=== PATIENT | female | born 1940 | race Caucasian/White ===

== ENCOUNTER 2018-05-29 08:02 | Emergency (ER) | payer OTHER ==
--- NOTE | 2018-05-29 08:07 | EDPHY ---
HPI/HX/ROS/PE/MDM Narrative: CHIEF COMPLAINT: Fall HISTORY OF PRESENT ILLNESS: This patient is a 78-year-old female with history of dementia arriving via EMS following an unwitnessed fall this morning. She lives at [facility], and staff presume the fall was from standing. It was reported immediately by another resident, and staff deny any known loss of consciousness. She sustained a laceration or puncture wound to her occiput during her fall, bleeding was controlled prior to EMS arrival. She was acting appropriately per staff. EMS crews attempted to place a cervical collar due to unknown mechanism, but the patient did not tolerate this. Vitals were stable in transport, BGL 103. The patient states she does not know what happened this morning, but endorses knowledge of striking her head. She denies chest pain or abdominal pain. She is not anticoagulated per her medication list. HPI primarily obtained via EMS report. Patient is a poor historian due to history of dementia. REVIEW OF SYSTEMS: Unable to obtain due to patient's underlying dementia. PAST MEDICAL HISTORY: Dementia. Hypertension. SOCIAL HISTORY: Lives at [facility]. Patient is a full code. Retired. . VITAL SIGNS: Reviewed by me GENERAL: Pleasant, confused, elderly female. Obvious trauma to back of head. Scared and confused. Follows some simple instructions. HEENT: No facial trauma. Wound to occiput covered by hair matted with blood. Eyes: No icterus, no injection. PERRL. Mouth: moist mucous membranes. No erythema or lesions. Neck: supple with no adenopathy, nontender. LUNGS: Clear to auscultation bilaterally, no wheezes, rhonchi or rales. No chest trauma noted. CARDIAC: Regular rate and rhythm, no rubs, murmurs or gallops. ABDOMEN: Soft, nontender, nondistended, bowel sounds normal. BACK: Atraumatic. No CVA tenderness. EXTREMITIES: No trauma. No edema. Range of motion is normal throughout. NEURO: Alert, grossly nonfocal. Patient is unable to cooperate with a full neurologic exam but is responding appropriately to stimuli, is consolable, and is moving all extremities. SKIN: Warm and dry, no rash. PSYCHIATRIC: Normal mentation, no agitation. Portions of this note were transcribed by a biomedical engineering professor. I personally performed a history, physical exam, medical decision making, and confirmed accuracy of information the transcribed note. ED Course: 78-year-old female with a history of significant dementia/Alzheimer's presents after a presumed fall from standing height. She was found by the staff with a laceration to the back of her head. Received report from EMS at bedside on arrival. Evaluation emergency department will include EKG, head CT, basic metabolic laboratory evaluation. Plan to administer 0.5mg PO Ativan. Of note, paperwork from the long term does not indicate the patient's core status. 12-LEAD EKG: Please see the full report in [facility]. My interpretation: Sinus rhythm, rate 74. Multiple PVCs. Patient's laceration on the left occipital parietal area was anesthetized with 0.5% bupivacaine with epinephrine. Notified by nursing staff that the patient is a full code. 09:03 Attemped to obtain head CT after sedation with oral ativan. Patient became quite agitated and was unable to tolerate CT. Remainder of patients labs does not indicate other etiology for her fall. Suspect mechanical. Reassessed. Patient's wound has been cleaned: 2cm laceration to the occiput down to galea. Plan for laceration repair. 09:20 Procedure: Laceration repair. The linear 2cm laceration on the occiput was anesthetized using bupivacaine and epinephrine. The wound was cleaned with standard ED protocol, draped and explored to its base with a gloved finger. The wound was repaired in single layer technique with vito. The wound repair was simple. The procedure was performed by myself, Dr. Kunz. Second attempt to obtain head CT post sedation with zyprexa. 11:[address] Roche, radiologist. CT is nondiagnostic due to motion. Patient again sedated with Ativan. 12:[address] Roche, radiologist. CT shows left-sided subgaleal hematoma , no acute intracranial processes. Plan to discharge home in good condition with prescription for Keflex for infection prevention. She will return in 10 days for staple removal. Return precautions and infection precautions discussed. MDM: Differential diagnosis of fall in the elderly was considered including but not limited to intracranial injury, long bone and pelvic bone fracture, spinal injury, intrathoracic injury, extremity injury, intra-abdominal injury, lacerations, abrasions, and contusions. - Data Points Imaging Results: Addendum IMPRESSION: Left high convexity subgaleal hematoma. No acute intracranial process. Age-appropriate generalized cerebral volume loss with sequelae of chronic microvascular ischemic disease. Findings and recommendations discussed with Ale Kunz MD at 1202 hour, 05/29/2018. Addendum Dictated By: Neymar Roche MD *This report was compiled using a voice recognition dictation system and may contain typographical errors* 1157 T:PSCRIBE 05/29/18 1157 Electronically Signed by:Neymar Roche MD 05/29/18 1208 CC: Ale Kunz MD; PCP Not In, Dictionary Addendum ADDENDUM: Repeat images are of diagnostic quality. No acute large vessel ischemic infarct, hemorrhage, or extra-axial fluid collection is appreciated. Lateral ventricles and cortical sulci are prominent, compatible with age-appropriate generalized cerebral volume loss. Hypodensity within the periventricular and subcortical white matter is consistent with changes of chronic microvascular ischemic disease. There is no midline shift and the basal cisterns are not effaced. A subgaleal hematoma overlying the left parietal bone noted. There is no displaced skull fracture. Paranasal sinuses and mastoid air cells are clear. Head WO IV Contrast History: fall hx of severe dementia. Comparison: None available. Technique: Dose reduction techniques were utilized. Findings: Severely limited study due to motion. No large intraparenchymal hemorrhage is seen. Evaluation for subarachnoid is limited. Evaluation for ischemic stroke is also limited. Mastoid air cells are clear. Paranasal sinuses are clear. Evaluation of a skull fracture is limited. Impression: Nearly nondiagnostic study due to motion. No large intraparenchymal hemorrhage seen. Findings and recommendations discussed with Ale Kunz MD at 1125 hour, 05/29/2018. Dictated By: Neymar Roche MD Imaging: Discussed imaging studies w/ inbound call center representative Radiologist Laboratory Results: Laboratory Results 05/29/18 08:25 05/29/18 08:25 Medications Given: Discontinued Medications Lorazepam (Ativan) 0.5 mg PO EDNOW ONE Stop: 05/29/18 08:11 Last Admin: 05/29/18 08:12 Dose: 0.5 mg Lorazepam (Ativan Injection) 1 mg IM EDNOW ONE Stop: 05/29/18 10:26 Last Admin: 05/29/18 10:29 Dose: 1 mg Point of Care Test Results: Chemistry 05/29/18 08:28 POC Troponin I 0.01 ng/mL ng/mL (0.00-0.08) General Time Seen by Provider: 05/29/18 08:03 Initial Vital Signs: Initial Vital Signs Temperature (C) 36.7 C 05/29/18 08:03 Heart Rate 84 05/29/18 08:03 Respiratory Rate 18 05/29/18 08:03 Blood Pressure 196/91 H 05/29/18 08:03 O2 Sat (%) 93 05/29/18 08:03 O2 Delivery Mode Room Air Allergies/Adverse Reactions: No Known Allergies Allergy (Unverified 05/29/18 08:06) Home Medications: Medication Instructions Recorded Ativan 04/16/18 Remeron 04/16/18 Cephalexin [Keflex (RX)] 500 mg PO QID 5 Days cap 05/29/18 Departure - Departure Disposition: Home, Routine, Self-Care Clinical Impression: Subgaleal hematoma Occipital scalp laceration Qualifiers: Encounter type: initial encounter Qualified Code(s): S01.01XA - Laceration without foreign body of scalp, initial encounter Fall Qualifiers: Encounter type: initial encounter Qualified Code(s): W19.XXXA - Unspecified fall, initial encounter Condition: Good Instructions: Cephalexin (By mouth), Head Injury (ED), Staple Care (ED), Fall Prevention (ED) Additional Instructions: Follow-up with your primary doctor within 2-3 days. Vito should be removed in 10 days. Return to the Emergency Department for fever, redness, discharge from wound, increasing pain or other worsening of condition. Take Keflex as prescribed. It is important to finish your entire course of antibiotics. Return to the Emergency Department for severe headache, vomiting, vision changes , confusion, fever or other concerns. Referrals: Renny Archer MD [[facility]] - As per Instructions Prescriptions: Cephalexin [Keflex (RX)] 500 mg PO QID 5 Days cap Report Scribed for: Ale Kunz Report Scribed by: Melvina Alvarez Date of Report: 05/29/18 Time of Report: 08:08
[2018-05-29] MEDS ORDERED: LORazepam 0.5 MG TAB PO ONE (08:10)
[2018-05-29 08:34] LABS: PLATELET COUNT 148 10^3/uL (150-400)
[2018-05-29 09:02] LABS: INR 1.03 (0.83-1.16); PROTIME(PATIENT) 13.7 SEC (12.0-15.0)
[2018-05-29] MEDS ORDERED: LORazepam 2 MG/ML INJ IM ONE (10:25)
[2018-05-29] MEDS ORDERED: LORazepam 2 MG/ML INJ ONE (10:26)
[2018-05-29 13:47] VITALS: BP 125/78
--- NOTE | 2018-05-29 15:54 | CPEKG ---
Test Reason : OPEN Blood Pressure : / mmHG Vent. Rate : 074 BPM Atrial Rate : 075 BPM P-R Int : 139 ms QRS Dur : 084 ms QT Int : 404 ms P-R-T Axes : 071 076 075 degrees QTc Int : 449 ms Sinus rhythm Multiple ventricular premature complexes Probable left atrial enlargement Probable left ventricular hypertrophy Confirmed by Ale Kunz ([id number]) on 05/29/2018 3:53:46 PM Referred By: Confirmed By:Ale Kunz
== END 2018-05-29 13:47 | disposition home or self-care (01) ==
LOC: EDUNIT#
PROC: 0HQ0XZZ Repair Scalp Skin, External Approach (ICD-10-PCS; principal; 2018-05-29)
DX: S01.01XA Laceration without foreign body of scalp, initial encounter (principal); F03.90 Unspecified dementia, unspecified severity, without behavioral disturbance, psychotic disturbance, mood disturbance, and anxiety; I10 Essential (primary) hypertension; W19.XXXA Unspecified fall, initial encounter; Y92.129 Unspecified place in nursing home as the place of occurrence of the external cause
CPT/HCPCS: 12001; 70450; 93005; 96372; 99285; J2060; 84484-PO

== ENCOUNTER 2018-06-07 14:47 | Emergency (ER) | payer OTHER ==
--- NOTE | 2018-06-07 15:03 | EDPHY ---
H & P Stated Complaint: frequent falls, today fall with hematoma to forehead. no loc Time Seen by Provider: 06/07/18 15:03 HPI/ROS: CHIEF COMPLAINT: Frequent falls HISTORY OF PRESENT ILLNESS: Patient has a history of fairly severe dementia and lives at [facility]. Today she was observed to have a fall landing on her forehead sustaining a fairly large hematoma. The patient has been seen in the emergency department approximately 10 days ago after similar episode. She had a negative noncontrast head CT scan at that time and did have a laceration repaired. The patient has a history of increasing confusion by maintenance supervisor reports. There has been no reported history of fever, vomiting, cough or dysuria. In the emergency department, the patient is demented cannot reliably provide much history surrounding her presentation today. She does complain of some mild frontal head pain but denies chest pain, shortness of breath or abdominal pain. She has no complaints of acute numbness or weakness. REVIEW OF SYSTEMS: A comprehensive 10 point review of systems is otherwise negative aside from elements mentioned in the history of present illness. Source: Patient - Personal History Current Tetanus/Diphtheria Vaccine: Yes Current Tetanus Diphtheria and Acellular Pertussis (TDAP): Yes - Medical/Surgical History Hx Asthma: No Hx Chronic Respiratory Disease: No Hx Diabetes: No Hx Cardiac Disease: No Hx Renal Disease: No Hx Cirrhosis: No Hx Alcoholism: No Hx HIV/AIDS: No Hx Splenectomy or Spleen Trauma: No Other PMH: DEMENTIA - Social History Smoking Status: Unknown if ever smoked - Physical Exam Exam: General Appearance: Elderly deconditioned female Head: Large frontal scalp hematoma, no obvious laceration Eyes: Pupils equal, round, reactive ENT, Mouth: No hemotympanum, no oral trauma Neck: Nontender, trachea midline Respiratory: No chest wall tender, no subcutaneous air, lungs clear bilaterally Cardiovascular: Regular rate and rhythm Abdomen: Abdomen is soft and nontender, pelvis stable Skin: No lacerations, No abrasion Back: No midline T/L/S pain Extremities: Nontender, full range of motion Neurological: A&Ox1 (likely baseline), normal motor function, normal sensory exam Constitutional: Initial Vital Signs Temperature (C) 37.4 C 06/07/18 14:55 Heart Rate 80 06/07/18 14:55 Respiratory Rate 18 06/07/18 14:55 Blood Pressure 180/75 H 06/07/18 14:55 O2 Sat (%) 94 06/07/18 14:55 O2 Delivery Mode Room Air Allergies/Adverse Reactions: No Known Allergies Allergy (Unverified 05/29/18 08:06) Home Medications: Medication Instructions Recorded Ativan 04/16/18 Remeron 04/16/18 Cephalexin [Keflex (RX)] 500 mg PO QID 5 Days cap 05/29/18 Medical Decision Making - Diagnostics Imaging Results: Imaging Impressions Chest X-Ray 06/07/18 15:03 Impression: Nothing acute identified on this markedly rotated exam. Head CT 06/07/18 15:44 Impression: New left posterior frontal scalp hematoma. No intracranial trauma identified. Results called to Dr. Raji Chamberlain at 6:14 PM General information for patients regarding this examination can be found at [email or web address]. If you have questions or comments about this report, please contact me at (hospital) or [phone] (cell). ED Course/Re-evaluation: The patient presents the ED after recurrent falls [facility]. She has a large frontal scalp hematoma. The patient required IV Versed in order to obtain a CT scan of the head which demonstrates atrophy but no intracranial hemorrhage or skull fracture. Remainder of the patient's workup was unremarkable. She has no evidence of an urinary tract infection. Laboratory studies are within normal limits The patient will be [facility]. Differential Diagnosis: Differential diagnosis considered includes intracranial hemorrhage, urinary tract infection, dehydration, metabolic abnormality, skull fracture - Data Points Laboratory Results: Laboratory Results 06/07/18 15:38 06/07/18 15:38 06/07/18 06/07/18 06/07/18 18:00 15:38 15:38 WBC RBC Hgb Hct MCV MCH MCHC RDW Plt Count MPV Neut % (Auto) Lymph % (Auto) [place] % (Auto) Eos % (Auto) Baso % (Auto) Nucleat RBC Rel Count Absolute Neuts (auto) Absolute Lymphs (auto) Absolute Monos (auto) Absolute Eos (auto) Absolute Basos (auto) Absolute Nucleated RBC Immature Gran % Immature Gran # PT 13.1 SEC SEC (12.0-15.0) INR 0.97 (0.83-1.16) APTT 32.5 SEC SEC (23.0-38.0) Sodium 141 mEq/L mEq/L (135-145) Potassium 4.7 mEq/L mEq/L (3.3-5.0) Chloride 101 mEq/L mEq/L (97-110) Carbon Dioxide 32 mEq/l H mEq/l (22-31) Anion Gap 8 mEq/L mEq/L (8-16) BUN 24 mg/dL H mg/dL (7-23) Creatinine 0.8 mg/dL mg/dL (0.6-1.0) Estimated GFR > 60 Glucose 106 mg/dL H mg/dL (70-100) Calcium 9.1 mg/dL mg/dL (8.5-10.4) Urine Color YELLOW Urine Appearance HAZY Urine pH 7.0 (5.0-7.5) Ur Specific [place] 1.016 (1.002-1.030) Urine Protein NEGATIVE (NEGATIVE) Urine Ketones NEGATIVE (NEGATIVE) Urine Blood NEGATIVE (NEGATIVE) Urine Nitrate NEGATIVE (NEGATIVE) Urine Bilirubin NEGATIVE (NEGATIVE) Urine Urobilinogen 4.0 EU H EU (0.2-1.0) Ur Leukocyte Esterase NEGATIVE (NEGATIVE) Urine Glucose NEGATIVE (NEGATIVE) 06/07/18 15:38 WBC 8.81 10^3/uL 10^3/uL (3.80-9.50) RBC 4.48 10^6/uL 10^6/uL (4.18-5.33) Hgb 13.5 g/dL g/dL (12.6-16.3) Hct 41.4 % % (38.0-47.0) MCV 92.4 fL fL (81.5-99.8) MCH 30.1 pg pg (27.9-34.1) MCHC 32.6 g/dL g/dL (32.4-36.7) RDW 13.3 % % (11.5-15.2) Plt Count 171 10^3/uL 10^3/uL (150-400) MPV 10.1 fL fL (8.7-11.7) Neut % (Auto) 82.4 % H % (39.3-74.2) Lymph % (Auto) 9.5 % L % (15.0-45.0) [place] % (Auto) 6.4 % % (4.5-13.0) Eos % (Auto) 1.1 % % (0.6-7.6) Baso % (Auto) 0.3 % % (0.3-1.7) Nucleat RBC Rel Count 0.0 % % (0.0-0.2) Absolute Neuts (auto) 7.25 10^3/uL H 10^3/uL (1.70-6.50) Absolute Lymphs (auto) 0.84 10^3/uL L 10^3/uL (1.00-3.00) Absolute Monos (auto) 0.56 10^3/uL 10^3/uL (0.30-0.80) Absolute Eos (auto) 0.10 10^3/uL 10^3/uL (0.03-0.40) Absolute Basos (auto) 0.03 10^3/uL 10^3/uL (0.02-0.10) Absolute Nucleated RBC 0.00 10^3/uL 10^3/uL (0-0.01) Immature Gran % 0.3 % % (0.0-1.1) Immature Gran # 0.03 10^3/uL 10^3/uL (0.00-0.10) PT INR APTT Sodium Potassium Chloride Carbon Dioxide Anion Gap BUN Creatinine Estimated GFR Glucose Calcium Urine Color Urine Appearance Urine pH Ur Specific [place] Urine Protein Urine Ketones Urine Blood Urine Nitrate Urine Bilirubin Urine Urobilinogen Ur Leukocyte Esterase Urine Glucose Medications Given: Discontinued Medications Lorazepam (Ativan Injection) 0.5 mg IM EDNOW ONE Stop: 06/07/18 16:32 Last Admin: 06/07/18 16:43 Dose: 0.5 mg Departure - Departure Disposition: Home, Routine, Self-Care Clinical Impression: Scalp contusion, Dementia with behavioral disturbance Condition: Fair Instructions: Scalp Contusion in Adults (ED) Additional Instructions: 1. Your CT scan demonstrates no evidence of bleeding or fracture. 2. The remainder of your laboratory studies and urine test are also unremarkable. 3. Please follow up with your primary care provider as scheduled. Referrals: FABIO FAIR [Other] - As per Instructions
[2018-06-07 15:50] LABS: PLATELET COUNT 171 10^3/uL (150-400)
[2018-06-07 15:59] LABS: INR 0.97 (0.83-1.16); PROTIME(PATIENT) 13.1 SEC (12.0-15.0)
[2018-06-07] MEDS ORDERED: LORazepam 2 MG/ML INJ IM ONE (16:31)
[2018-06-07] MEDS ORDERED: MIDAZOLAM 2 MG/2 ML VIAL ONE (17:23)
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
[2018-06-07 18:55] VITALS: BP 139/68
[2018-06-07] MEDS ORDERED: MIDAZOLAM 2 MG/2 ML VIAL IVP ONE (19:06)
== END 2018-06-07 19:09 | disposition home or self-care (01) ==
LOC: EDUNIT#
DX: S00.03XA Contusion of scalp, initial encounter (principal); F03.91 Unspecified dementia, unspecified severity, with behavioral disturbance; Z66 Do not resuscitate; W19.XXXA Unspecified fall, initial encounter; Y92.9 Unspecified place or not applicable; Y93.9 Activity, unspecified; Y99.9 Unspecified external cause status
CPT/HCPCS: 70450; 71045; 96374; 96375; 99285; J2060; J2250

== ENCOUNTER 2018-10-12 15:46 | Emergency (ER) | payer OTHER, MEDICAID ==
--- NOTE | 2018-10-12 15:56 | EDPHY ---
H & P Time Seen by Provider: 10/12/18 15:52 HPI/ROS: CHIEF COMPLAINT: Facial hematoma HISTORY OF PRESENT ILLNESS: Patient was brought in by EMS, history from them is not 100% clear apparently she was found on the ground at [facility] with evidence of facial trauma at 4:30 a.m. Today in the morning. Patient is not able to tell us history because of dementia. Review of systems and further history unobtainable because the patient has dementia PAST MEDICAL HISTORY: Includes hypertension, dementia, depression Social history: [facility] resident General Appearance: She is alert and moves all 4 extremities spontaneously but is not really able to cooperate with the exam. Eyes: No hyphema seen, had to pry her right eyelid open to see the right eye. Pupils are reactive. ENT, Mouth: Normal mucous membranes. Respiratory: Normal respiratory effort, breath sounds equal, lungs are clear to auscultation. Cardiovascular: Regular rate and rhythm. Gastrointestinal: Abdomen is soft and non tender. Neurological: Patient is alert moves all 4 extremities spontaneously. She has severe dementia. She does not really answer questions appropriately or follow commands. Skin: Bruising and abrasion on the right knee and both shoulders and over the right eye and forehead and upper face. Musculoskeletal: No extremity or spinal deformity or tenderness. Psychiatric: Not agitated. Emergency Department course/MDM: CBC, chemistry, CPK. CT head cervical spine and face. Case management consultation. Patient trying to get out of the bed, despite reassurance and 1 on 1, restrained for her own safety and to facilitate the ability to perform an appropriate medical screening examination. Ct per radiologist soft tissue hematoma only, no fracture or intracranial bleed : 1735. Seen by case management in the emergency department. Appears that the safe and most appropriate disposition is home to [facility]. Patient appears to have soft tissue injury only without acute medical or surgical emergent condition. Smoking Status: Unknown if ever smoked Constitutional: Initial Vital Signs Temperature (C) 37.2 C 10/12/18 15:55 Heart Rate 93 10/12/18 15:55 Respiratory Rate 18 10/12/18 15:55 Blood Pressure 156/86 H 10/12/18 15:55 O2 Sat (%) 97 10/12/18 15:55 O2 Delivery Mode Room Air Allergies/Adverse Reactions: No Known Allergies Allergy (Unverified 05/29/18 08:06) Home Medications: Medication Instructions Recorded Ativan 04/16/18 Remeron 04/16/18 Cephalexin [Keflex (RX)] 500 mg PO QID 5 Days cap 05/29/18 Medical Decision Making - Diagnostics Imaging Results: Imaging Impressions Cervical Spine CT 10/12/18 16:06 Impression: 1. No acute fracture or soft tissue swelling. 2. If the patient has persistent pain or neurologic deficits, consider cervical spine MRI. Findings discussed with Emergency Department physician, KORINA ANTHONY at 2018 17:00. Face CT 10/12/18 16:06 Impression: 1. No acute mandibular or facial fracture. 2. Right periorbital hematoma. Findings discussed with Emergency Department physicianKORINA at 2018 17:00. Head CT 10/12/18 16:06 Impression: 1. Large frontal scalp hematoma. 2. No acute fracture or evidence of acute intracranial injury. 3. Atrophy and diffuse white matter disease similar to June 2018. Findings discussed with Emergency Department physicianKORINA at 2018 17:00. - Data Points Laboratory Results: Laboratory Results 10/12/18 16:55 10/12/18 16:55 10/12/18 10/12/18 16:55 16:55 WBC 7.78 10^3/uL 10^3/uL (3.80-9.50) RBC 4.50 10^6/uL 10^6/uL (4.18-5.33) Hgb 13.7 g/dL g/dL (12.6-16.3) Hct 41.8 % % (38.0-47.0) MCV 92.9 fL fL (81.5-99.8) MCH 30.4 pg pg (27.9-34.1) MCHC 32.8 g/dL g/dL (32.4-36.7) RDW 13.6 % % (11.5-15.2) Plt Count 154 10^3/uL 10^3/uL (150-400) MPV 10.2 fL fL (8.7-11.7) Neut % (Auto) 77.9 % H % (39.3-74.2) Lymph % (Auto) 12.5 % L % (15.0-45.0) [place] % (Auto) 7.7 % % (4.5-13.0) Eos % (Auto) 1.2 % % (0.6-7.6) Baso % (Auto) 0.3 % % (0.3-1.7) Nucleat RBC Rel Count 0.0 % % (0.0-0.2) Absolute Neuts (auto) 6.07 10^3/uL 10^3/uL (1.70-6.50) Absolute Lymphs (auto) 0.97 10^3/uL L 10^3/uL (1.00-3.00) Absolute Monos (auto) 0.60 10^3/uL 10^3/uL (0.30-0.80) Absolute Eos (auto) 0.09 10^3/uL 10^3/uL (0.03-0.40) Absolute Basos (auto) 0.02 10^3/uL 10^3/uL (0.02-0.10) Absolute Nucleated RBC 0.00 10^3/uL 10^3/uL (0-0.01) Immature Gran % 0.4 % % (0.0-1.1) Immature Gran # 0.03 10^3/uL 10^3/uL (0.00-0.10) Sodium 140 mEq/L mEq/L (135-145) Potassium 4.1 mEq/L mEq/L (3.5-5.2) Chloride 104 mEq/L mEq/L (97-110) Carbon Dioxide 28 mEq/l mEq/l (22-31) Anion Gap 8 mEq/L mEq/L (6-14) BUN 23 mg/dL mg/dL (7-23) Creatinine 0.8 mg/dL mg/dL (0.6-1.0) Estimated GFR > 60 Glucose 111 mg/dL H mg/dL (70-100) Calcium 9.1 mg/dL mg/dL (8.5-10.4) Creatine Kinase 62 IU/L IU/L (0-156) Departure - Departure Disposition: Home, Routine, Self-Care Clinical Impression: Traumatic hematoma of face Condition: Good Instructions: Head Injury (ED) Referrals: HAYLEE CLARK [Non Staff Provider (MD)] - As per Instructions
[2018-10-12 17:09] LABS: PLATELET COUNT 154 10^3/uL (150-400)
[2018-10-12 17:12] LABS: CREATINE KINASE 62 IU/L (0-156)
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
[2018-10-12 19:22] VITALS: BP 155/80
== END 2018-10-12 19:23 | disposition home or self-care (01) ==
LOC: EDUNIT#
DX: S00.83XA Contusion of other part of head, initial encounter (principal); S80.211A Abrasion, right knee, initial encounter; S40.212A Abrasion of left shoulder, initial encounter; S40.211A Abrasion of right shoulder, initial encounter; I10 Essential (primary) hypertension; F03.90 Unspecified dementia, unspecified severity, without behavioral disturbance, psychotic disturbance, mood disturbance, and anxiety; F32.9 Major depressive disorder, single episode, unspecified; W19.XXXA Unspecified fall, initial encounter; Y92.129 Unspecified place in nursing home as the place of occurrence of the external cause; Y93.9 Activity, unspecified; Y99.9 Unspecified external cause status

== ENCOUNTER 2018-11-07 14:25 | Emergency (ER) | payer OTHER, MEDICAID ==
--- NOTE | 2018-11-07 14:32 | EDPHY ---
H & P Time Seen by Provider: 11/07/18 14:26 HPI/ROS: CHIEF COMPLAINT: Fall HISTORY OF PRESENT ILLNESS: The patient is a 78-year-old female who is on the dementia unit. She fell from standing today and put a dent in the dry wall. She hit the right parietal area of her head. She denies any pain in her head or neck. She is not on blood thinners. She is moving all extremities without difficulty. Witnesses states she did not lose consciousness. She has paperwork with her for limited resuscitation. Her history is limited by her mental status. She is holding a doll. She keeps removing the blood pressure cuff and tries to kiss people who get near her. Severity: Moderate Modifying factors: None REVIEW OF SYSTEMS: Unable to obtain secondary to condition. EXAM: GENERAL: Thin, no acute distress. HEAD: No visible hematoma, normocephalic. EYES: Pupils equal round and reactive to light, extraocular movements intact, sclera anicteric, conjunctiva are normal. ENT: TMs normal, nares patent, oropharynx clear without exudates. Moist mucous membranes. NECK: No neck tenderness or step-offs. Normal range of motion, supple without lymphadenopathy or JVD. LUNGS: Breath sounds clear to auscultation bilaterally and equal. No wheezes rales or rhonchi. HEART: Regular rate and rhythm without murmurs, rubs or gallops. ABDOMEN: Soft, nontender, normoactive bowel sounds. No guarding, no rebound. No masses appreciated. BACK: No CVA tenderness, no spinal tenderness, step-offs or deformities EXTREMITIES: Normal range of motion, no pitting or edema. No clubbing or cyanosis. NEUROLOGICAL: Cranial nerves II through XII grossly intact. Normal speech, normal gait. 5/5 strength, normal movement in all extremities, normal sensation , normal reflexes PSYCH: Awake and alert, normal mentation according to correction via paramedics. SKIN: Warm, dry, normal turgor, no visible rashes or lesions. Source: Patient Exam Limitations: No limitations - Medical/Surgical History Hx Asthma: No Hx Chronic Respiratory Disease: No Hx Diabetes: No Hx Cardiac Disease: No Hx Renal Disease: No Hx Cirrhosis: No Hx Alcoholism: No Hx HIV/AIDS: No Hx Splenectomy or Spleen Trauma: No Other PMH: DEMENTIA - Family History Significant Family History: No pertinent family hx - Social History Smoking Status: Unknown if ever smoked Alcohol Use: None Constitutional: Initial Vital Signs Heart Rate 78 11/07/18 14:32 Respiratory Rate 18 11/07/18 14:32 Blood Pressure 192/93 H 11/07/18 14:32 O2 Sat (%) 96 11/07/18 14:32 O2 Delivery Mode Room Air Allergies/Adverse Reactions: No Known Allergies Allergy (Unverified 05/29/18 08:06) Home Medications: Medication Instructions Recorded Ativan 04/16/18 Remeron 04/16/18 Cephalexin [Keflex (RX)] 500 mg PO QID 5 Days cap 05/29/18 Medical Decision Making ED Course/Re-evaluation: The patient will not lie still for CT scan. We can barely keep her in her room with several people assisting. She shows no sign of injury or illness. Will cancel imaging and simply observe for few hours for worsening condition. 7:00 p.m. the patient remains at baseline. She is ambulating. She has no complaints or signs of injury. Will discharge at this time back to the correction. Differential Diagnosis: Partial list of the Differential diagnosis considered include but were not limited to; fall, head injury, neck injury and although unlikely based on the history and physical exam, I also considered intracranial hemorrhage, sepsis, CVA. Departure - Departure Disposition: Home, Routine, Self-Care Clinical Impression: Fall Qualifiers: Encounter type: initial encounter Qualified Code(s): W19.XXXA - Unspecified fall, initial encounter Dementia with behavioral disturbance Qualifiers: Dementia type: unspecified type Qualified Code(s): F03.91 - Unspecified dementia with behavioral disturbance Condition: Fair Instructions: Dementia (ED), Fall Prevention for Older Adults (ED) Referrals: Patient,NotPresent [Unknown] - As per Instructions Dory Joseph MD [Medical Doctor] - 2-3 days, if not improved
[2018-11-07 19:33] VITALS: BP 184/74
== END 2018-11-07 20:30 ==
LOC: EDUNIT# → EDBD
DX: S09.90XA Unspecified injury of head, initial encounter (principal); F03.91 Unspecified dementia, unspecified severity, with behavioral disturbance; W19.XXXA Unspecified fall, initial encounter; Y92.129 Unspecified place in nursing home as the place of occurrence of the external cause; Y99.9 Unspecified external cause status; Y93.9 Activity, unspecified

== ENCOUNTER 2019-01-31 02:21 | Emergency (ER) | payer OTHER, MEDICAID | END 2019-01-31 05:03 | disposition home or self-care (01) ==